=== PATIENT | female | born 1955 | race Caucasian/White ===

== ENCOUNTER 2023-10-25 07:44 | Day surgery (SDC) | payer BC ==
[2023-10-23 13:10] LABS: BASOPHILS % (AUTO) 0.7 % (0.0-2.0); EOSINOPHILS # (AUTO) 0.1 K/uL (0.0-0.4); EOSINOPHILS % (AUTO) 2.2 % (0.0-4.0); HEMATOCRIT 46.5 % (36-48); HEMOGLOBIN 15.1 g/dL (12.0-16.0); LYMPHOCYTES # (AUTO) 1.5 K/uL (1.0-5.5); LYMPHOCYTES % (AUTO) 22.6 % (20.5-51.5); MEAN CORPUSCULAR HEMOGLOBIN 30 pg (27-31); MEAN CORPUSCULAR HGB CONC 33 % (32-36); MEAN CORPUSCULAR VOLUME 91 fL (79.0-98.0); MONOCYTES # (AUTO) 0.5 K/uL (0.0-1.0); MONOCYTES % (AUTO) 6.8 % (1.7-9.3); NEUTROPHILS # (AUTO) 4.5 K/uL (1.8-7.7); NEUTROPHILS % (AUTO) 67.7 % (40.0-70.0); PLATELET COUNT (AUTO) 282 K/uL (130-430); RED BLOOD CELL COUNT(AUTO) 5.09 MIL/uL (4.2-6.2); RED CELL DISTRIBUTION WIDTH 13.7 % (9.0-15.0); WHITE BLOOD COUNT (AUTO) 6.7 K/uL (4.8-10.8)
[2023-10-23 13:25] LABS: PROTHROMBIN TIME 10.4 SECS (9.5-12.5)
[2023-10-23 13:39] LABS: ALBUMIN 3.9 g/dL (3.4-4.8); CALCIUM 9.6 mg/dL (8.4-11.0); CREATININE 0.88 mg/dL (0.55-1.30); POTASSIUM 4.1 mmol/L (3.5-5.1); TOTAL BILIRUBIN 0.6 mg/dL (0.0-1.0); TOTAL PROTEIN, SERUM 8.1 g/dL (6.4-8.3)
[~2023-10-25] VITALS: Ht 165.1 cm; Wt 102.5 kg
[~2023-10-25 07:44] MED LIST: ACETAMINOPHEN 500 MG TABLET PO ONE; CELECOXIB 100 MG CAPSULE PO ONE; GABAPENTIN 300 MG CAPSULE PO ONE; ceFAZolin SODIUM 2 GM in D5W 100 ML IV ONE
[2023-10-25] MEDS ORDERED: CELECOXIB 100 MG CAPSULE ONE (08:12)
[2023-10-25] MEDS ORDERED: GABAPENTIN 300 MG CAPSULE ONE (08:13)
[2023-10-25] MEDS ORDERED: ACETAMINOPHEN 500 MG TABLET ONE (08:13)
[2023-10-25] MEDS ORDERED: GLYCOPYRROLATE 0.2 MG/ML VIAL ONE (10:10)
[2023-10-25] MEDS ORDERED: NS IRRIG SOLN 1000 ML IR ONE (10:10)
[2023-10-25] MEDS ORDERED: VANCOMYCIN HCL 1000 MG/VIAL IV ONE (10:10)
[2023-10-25] MEDS ORDERED: ROCURONIUM BROMIDE 10 MG/ML (ZEMURON) ONE (10:10)
[2023-10-25] MEDS ORDERED: SUGAMMADEX SODIUM 200 MG/2 ML VIAL IV ONE (10:10)
[2023-10-25] MEDS ORDERED: MIDAZOLAM HCL/PF 2 MG/2 ML SYRINGE ONE (10:10)
[2023-10-25] MEDS ORDERED: fentaNYL CITRATE/PF 100 MCG/2 ML AMP ONE (10:10)
[2023-10-25] MEDS ORDERED: DEXAMETHASONE SOD PHOSPHATE 4 MG/ML VIAL ONE (10:10)
[2023-10-25] MEDS ORDERED: BUPIVACAINE /PF 0.25% 30 ML VIAL INJ ONE (10:10)
[2023-10-25] MEDS ORDERED: KETOROLAC TROMETHAMINE 30 MG VIAL ONE (10:10)
[2023-10-25] MEDS ORDERED: ePHEDrine sulfate 50 MG/ML VIAL ONE (10:10)
[2023-10-25] MEDS ORDERED: LIDOCAINE 2%, 20 ML MDV ONE (10:10)
[2023-10-25] MEDS ORDERED: PROPOFOL 200MG/ 20ML VIAL (DIPRIVAN) IV ONE (10:10)
[2023-10-25] MEDS ORDERED: DESFLURANE 15 MIN GAS INH ONE (10:10)
[2023-10-25] MEDS ORDERED: oxyCODONE HCL 5 MG TABLET PO PRN ×2 (11:00)
[2023-10-25] MEDS ORDERED: LORATADINE 10 MG TABLET PO PRN (11:00)
[2023-10-25] MEDS ORDERED: traMADol HCL HCL 50 MG TABLET (ULTRAM) PO PRN (11:00)
[2023-10-25] MEDS ORDERED: HYDROmorphone 1 MG/ML INJ. CARTRIDGE IVP PRN ×4 (11:00→11:15)
[2023-10-25] MEDS ORDERED: METOCLOPRAMIDE HCL 10 MG/2 ML VIAL IVP PRN ×2 (11:15→13:45)
[2023-10-25] MEDS ORDERED: hydrALAZINE HCL 20 MG/ML VIAL IVP PRN (11:15)
[2023-10-25] MEDS ORDERED: LABETALOL 100 MG/ 20ML VIAL IVP PRN (11:15)
[2023-10-25] MEDS ORDERED: MEPERIDINE HCL/PF 25 MG/ML DISP.SYRIN IVP PRN (11:15)
[2023-10-25] MEDS ORDERED: LR 1,000 ML IV SCH (11:15)
[2023-10-25] MEDS ORDERED: MIDAZOLAM HCL 2 MG/2 ML VIAL (VERSED) IVP PRN (11:15)
[2023-10-25] MEDS ORDERED: ONDANSETRON HCL 4 MG/2 ML VIAL IVP PRN (11:45)
[2023-10-25] MEDS ORDERED: BISACODYL 10 MG/SUPPOSITORY RC PRN (13:45)
[2023-10-25] MEDS ORDERED: DIPHENHYDRAMINE HCL 25 MG CAPSULE PO PRN (13:45)
[2023-10-25] MEDS ORDERED: LACTULOSE 20 GM/30 ML UDC PO PRN (13:45)
[2023-10-25] MEDS ORDERED: DORZ10DR9 EACH EYE (13:54)
[2023-10-25] MEDS ORDERED: RESEYE OP (13:54)
[2023-10-25] MEDS ORDERED: BRIM10DR12 EACH EYE (13:54)
[2023-10-25] MEDS ORDERED: NETA2.5D3 (13:54)
[2023-10-25] MEDS ORDERED: OXYB5TAB16 PO (13:54)
[2023-10-25] MEDS ORDERED: MONT-47 (13:54)
[2023-10-25] MEDS ORDERED: SERT50TA PO (13:54)
[2023-10-25] MEDS ORDERED: HYDROmorphone 1 MG/ML INJ. CARTRIDGE ONE (14:27)
[2023-10-25 15:30] VITALS: BP_SYST 110; PULSE 65; RESP 18; TEMP 97.8; O2SAT 96
[2023-10-25 16:17] VITALS: BP_SYST 110; PULSE 71; RESP 20; TEMP 97.8; O2SAT 96
[2023-10-25] MEDS: ceFAZolin SODIUM 2 GM in D5W 50 ML IV SCH (17:54)
[2023-10-25 20:00] VITALS: BP_SYST 112; PULSE 66; RESP 18; TEMP 98.2; O2SAT 97
[2023-10-25] MEDS: SENNOSIDES/DOCUSATE SODIUM 1 TAB TABLET(SENOKOT-S) PO SCH (20:27)
[2023-10-25] MEDS ORDERED: ACETAMINOPHEN 500 MG TABLET PO SCH (22:00)
[2023-10-25] MEDS: HYDROmorphone 1 MG/ML INJ. CARTRIDGE IVP PRN (22:08)
[2023-10-26] VITALS: BP_SYST 114; PULSE 62; RESP 18; TEMP 98.3; O2SAT 97
[2023-10-26] MEDS: HYDROmorphone 1 MG/ML INJ. CARTRIDGE IVP PRN ×3 (02:05→11:11)
[2023-10-26] MEDS: ceFAZolin SODIUM 2 GM in D5W 50 ML IV SCH ×2 (02:11→10:51)
[2023-10-26 08:00] VITALS: BP_SYST 107; PULSE 64; RESP 20; TEMP 96.7; O2SAT 97
[2023-10-26] MEDS: SENNOSIDES/DOCUSATE SODIUM 1 TAB TABLET(SENOKOT-S) PO SCH (08:12)
[2023-10-26 10:58] VITALS: BP_SYST 107; PULSE 64; RESP 18; TEMP 96.7; O2SAT 97
== END 2023-10-26 14:00 | disposition home or self-care (01) ==
LOC: SDS 07:44 → SMU 07:45 → EDSTATUS 09:30 → SMU 15:15 → SDS 10-26 14:00
PROVIDERS: ATTEND Orthopaedic Surgery Sports Medicine
DX: M19.011 Primary osteoarthritis, right shoulder (principal); M75.41 Impingement syndrome of right shoulder; J45.909 Unspecified asthma, uncomplicated; K21.9 Gastro-esophageal reflux disease without esophagitis; E66.01 Morbid (severe) obesity due to excess calories; F32.A Depression, unspecified; Z88.0 Allergy status to penicillin; Z88.1 Allergy status to other antibiotic agents; Z79.01 Long term (current) use of anticoagulants; Z68.39 Body mass index [BMI] 39.0-39.9, adult; Z79.899 Other long term (current) drug therapy
CPT/HCPCS: 80053; 85025; 85610; 85730; 87081; 36415; 71046; 23472; 64415; 23430; 76000; 88304; 88311; J3490 ×3; J1100; J1885; J2001; J3465; J2704; J3370; J3010; J1170 ×2; J7060 ×2; A4649; C1713; C1776 ×2; 76001